=== PATIENT | male | born 1985 | race Caucasian/White ===

== ENCOUNTER 2016-10-21 08:06 | Emergency (ER) | payer BC ==
[~2016-10-21] VITALS: Ht 177.8 cm; Wt 118.8 kg
[~2016-10-21 08:06] MED LIST: AMLO5TAB4 PO; ATOR10TA64 PO; NEBI10TA PO; OXYM30SP3 EA NOSTRIL
[2016-10-21 08:08] VITALS: Ht 177.8 cm; Wt 118.8 kg
--- OUTSIDE RECORDS SUMMARY | 2016-10-21 08:09 | XMS REPORT | Referral Summary ---
Author Author [facility] Organization [facility] Address Unknown Phone Unavailable Care Team Providers Care Pot Tender Name Role Phone Andrei Moya Primary Care Physician [phone] Encounter Date(s): 06/27/16 - 06/27/[address] [facility] [address] [place] [address]- Discharge Diagnosis: Allergy Discharge Diagnosis: Obesity Discharge Diagnosis: Hypertension Discharge Disposition: 01-Home or Self Care Attending Physician: Dominick Moya MD Admitting Physician: Dominick Moya MD Vital Signs Most recent to 1 oldest [Reference Range]: Blood Pressure 146/94 mmHg [90-140/60-90 mmHg] *HI* (06/27/16 2:22 PM) Problem List Condition Effective Dates Status Health Status Informant Allergy(Confirmed) Active Asthma(Confirmed) Active Hypertension(Confirm Active ed) Hyperlipidemia(Confi Active rmed) Obesity(Confirmed) Active patient Tobacco Active patient user(Confirmed) Allergies, Adverse Reactions, Alerts Substance Reaction Severity Status sulfamethoxazole GERD, dyspnea, chest discomfort Active trimethoprim GERD, dyspnea, chest discomfort Active Medications Afrin Extra Moisturizing 2 sprays, Nasal, BID, 0 Refill(s) Start Date: 06/27/16 Status: Ordered aspirin 81 mg, Oral, Daily, 0 Refill(s) Start Date: 08/01/15 Status: Ordered Bystolic 10 mg oral tablet 10 mg 1 tabs, Oral, Daily, # 90 tabs, 3 Refill(s), Pharmacy: [facility] # [id number], 1 tabs Oral Daily Start Date: 01/02/16 Status: Ordered Lipitor 10 mg oral tablet 10 mg 1 tabs, Oral, Daily, # 90 tabs, 3 Refill(s), Pharmacy: [facility] # [id number], 1 tabs Oral Daily Start Date: 10/02/15 Status: Ordered Norvasc 5 mg oral tablet 5 mg 1 tabs, Oral, Daily, # 90 tabs, 1 Refill(s), Pharmacy: [facility] # [id number], 1 tabs Oral Daily Start Date: 01/10/16 Status: Ordered ZzzQuil Oral, as needed for insomnia, 0 Refill(s) Start Date: 12/19/15 Status: Ordered Results No data available for this section Immunizations Given and Recorded Vaccine Date Status Refusal Reason hepatitis B pediatric vaccine 01/02/98 Recorded tetanus-diphth toxoids (Td) adult/adol 01/02/98 Recorded Procedures Procedure Date Related Diagnosis Body Site Adenoidectomy Circumcision Procedure-Nasal surgery deviated septum Tonsillectomy Tonsillectomy Social History Social History Type Response Smoking Status Never smoker Assessment and Plan Extracted from: Title: Ambulatory Patient Education Author: Dominick Moya MD Date: Allergy Allergies An allergy is when your body reacts to a substance in a way that is not normal. An allergic reaction can happen after you: Eat something. Breathe in something. Touch something. WHAT KINDS OF ALLERGIES ARE THERE? You can be allergic to: Things that are only around during certain seasons, like molds and pollens. Foods. Drugs. Insects. Animal dander. WHAT ARE SYMPTOMS OF ALLERGIES? Puffiness (swelling). This may happen on the lips, face, tongue, mouth, or throat. Sneezing. Coughing. Breathing loudly (wheezing). Stuffy nose. Tingling in the mouth. A rash. Itching. Itchy, red, puffy areas of skin (hives). Watery eyes. Throwing up (vomiting). Watery poop (diarrhea). Dizziness. Feeling faint or fainting. Trouble breathing or swallowing. A tight feeling in the chest. A fast heartbeat. HOW ARE ALLERGIES DIAGNOSED? Allergies can be diagnosed with: A medical and family history. Skin tests. Blood tests. A food diary. A food diary is a record of all the foods, drinks, and symptoms you have each day. The results of an elimination diet. This diet involves making sure not to eat certain foods and then seeing what happens when you start eating them again. HOW ARE ALLERGIES TREATED? There is no cure for allergies, but allergic reactions can be treated with medicine. Severe reactions usually need to be treated at a hospital. HOW CAN REACTIONS BE PREVENTED? The best way to prevent an allergic reaction is to avoid the thing you are allergic to. Allergy shots and medicines can also help prevent reactions in some cases. This information is not intended to replace advice given to you by your health care provider. Make sure you discuss any questions you have with your health care provider. Document Released: 10/17/2013 Document Revised: 07/13/2015 Document Reviewed: [employer] Patient Education 2016 [employer] Obesity Obesity is defined as having too much total body fat and a body mass index (BMI ) of 30 or more. BMI is an estimate of body fat and is calculated from your height and weight. BMI is typically calculated by your health care provider during regular wellness visits. Obesity happens when you consume more calories than you can burn by exercising or performing daily physical tasks. Prolonged obesity can cause major illnesses or emergencies, such as: Stroke. Heart disease. Diabetes. Cancer. Arthritis. High blood pressure (hypertension). High cholesterol. Sleep apnea. Erectile dysfunction. Infertility problems. CAUSES Regularly eating unhealthy foods. Physical inactivity. Certain disorders, such as an underactive thyroid (hypothyroidism), Lindley's syndrome, and polycystic ovarian syndrome. Certain medicines, such as steroids, some depression medicines, and antipsychotics. Genetics. Lack of sleep. DIAGNOSIS A health care provider can diagnose obesity after calculating your BMI. Obesity will be diagnosed if your BMI is 30 or higher. There are other methods of measuring obesity levels. Some other methods include measuring your skinfold thickness, your waist circumference, and comparing your hip circumference to your waist circumference. TREATMENT A healthy treatment program includes some or all of the following: Long-term dietary changes. Exercise and physical activity. Behavioral and lifestyle changes. Medicine only under the supervision of your health care provider. Medicines may help, but only if they are used with diet and exercise programs. If your BMI is 40 or higher, your health care provider may recommend specialized surgery or programs to help with weight loss. An unhealthy treatment program includes: Fasting. Fad diets. Supplements and drugs. These choices do not succeed in long-term weight control. HOME CARE INSTRUCTIONS Exercise and perform physical activity as directed by your health care provider. To increase physical activity, try the following: Use stairs instead of elevators. Park farther away from store entrances. Garden, bike, or walk instead of watching television or using the computer. Eat healthy, low-calorie foods and drinks on a regular basis. Eat more fruits and vegetables. Use low-calorie cookbooks or take healthy cooking classes. Limit fast food, sweets, and processed snack foods. Eat smaller portions. Keep a daily journal of everything you eat. There are many free websites to help you with this. It may be helpful to measure your foods so you can determine if you are eating the correct portion sizes. Avoid drinking alcohol. Drink more water and drinks without calories. Take vitamins and supplements only as recommended by your health care provider. Weight-loss support groups, registered dietitians, counselors, and stress reduction education can also be very helpful. SEEK IMMEDIATE MEDICAL CARE IF: You have chest pain or tightness. You have trouble breathing or feel short of breath. You have weakness or leg numbness. You feel confused or have trouble talking. You have sudden changes in your vision. This information is not intended to replace advice given to you by your health care provider. Make sure you discuss any questions you have with your health care provider. Document Released: 07/30/2005 Document Revised: 07/13/2015 Document Reviewed: [employer] Patient Education 2016 [employer] Preventive Medicine Managing Your High Blood Pressure Blood pressure is a measurement of how forceful your blood is pressing against the norris of the arteries. Arteries are muscular tubes within the circulatory system. Blood pressure does not stay the same. Blood pressure rises when you are active, excited, or nervous; and it lowers during sleep and relaxation. If the numbers measuring your blood pressure stay above normal most of the time, you are at risk for health problems. High blood pressure (hypertension) is a long-term (chronic) condition in which blood pressure is elevated. A blood pressure reading is recorded as two numbers, such as 120 over 80 (or 120 /80). The first, higher number is called the systolic pressure. It is a measure of the pressure in your arteries as the heart beats. The second, lower number is called the diastolic pressure. It is a measure of the pressure in your arteries as the heart relaxes between beats. Keeping your blood pressure in a normal range is important to your overall health and prevention of health problems, such as heart disease and stroke. When your blood pressure is uncontrolled, your heart has to work harder than normal. High blood pressure is a very common condition in adults because blood pressure tends to rise with age. Men and women are equally likely to have hypertension but at different times in life. Before age 45, men are more likely to have hypertension. After 65 years of age, women are more likely to have it. Hypertension is especially common in Americans. This condition often has no signs or symptoms. The cause of the condition is usually not known. Your caregiver can help you come up with a plan to keep your blood pressure in a normal, healthy range. BLOOD PRESSURE STAGES Blood pressure is classified into four stages: normal, prehypertension, stage 1 , and stage 2. Your blood pressure reading will be used to determine what type of treatment, if any, is necessary. Appropriate treatment options are tied to these four stages: Normal Systolic pressure (mm Hg): below 120. Diastolic pressure (mm Hg): below 80. Prehypertension Systolic pressure (mm Hg): 120 to 139. Diastolic pressure (mm Hg): 80 to 89. Stage1 Systolic pressure (mm Hg): 140 to 159. Diastolic pressure (mm Hg): 90 to 99. Stage2 Systolic pressure (mm Hg): 160 or above. Diastolic pressure (mm Hg): 100 or above. RISKS RELATED TO HIGH BLOOD PRESSURE Managing your blood pressure is an important responsibility. Uncontrolled high blood pressure can lead to: A heart attack. A stroke. A weakened blood vessel (aneurysm). Heart failure. Kidney damage. Eye damage. Metabolic syndrome. Memory and concentration problems. HOW TO MANAGE YOUR BLOOD PRESSURE Blood pressure can be managed effectively with lifestyle changes and medicines ( if needed). Your caregiver will help you come up with a plan to bring your blood pressure within a normal range. Your plan should include the following: Education Read all information provided by your caregivers about how to control blood pressure. Educate yourself on the latest guidelines and treatment recommendations. New research is always being done to further define the risks and treatments for high blood pressure. Lifestylechanges Control your weight. Avoid smoking. Stay physically active. Reduce the amount of salt in your diet. Reduce stress. Control any chronic conditions, such as high cholesterol or diabetes. Reduce your alcohol intake. Medicines Several medicines (antihypertensive medicines) are available, if needed, to bring blood pressure within a normal range. Communication Review all the medicines you take with your caregiver because there may be side effects or interactions. Talk with your caregiver about your diet, exercise habits, and other lifestyle factors that may be contributing to high blood pressure. See your caregiver regularly. Your caregiver can help you create and adjust your plan for managing high blood pressure. RECOMMENDATIONS FOR TREATMENT AND FOLLOW-UP The following recommendations are based on current guidelines for managing high blood pressure in non adults. Use these recommendations to identify the proper follow-up period or treatment option based on your blood pressure reading. You can discuss these options with your caregiver. Systolic pressure of 120 to 139 or diastolic pressure of 80 to 89: Follow up with your caregiver as directed. Systolic pressure of 140 to 160 or diastolic pressure of 90 to 100: Follow up with your caregiver within 2 months. Systolic pressure above 160 or diastolic pressure above 100: Follow up with your caregiver within 1 month. Systolic pressure above 180 or diastolic pressure above 110: Consider antihypertensive therapy; follow up with your caregiver within 1 week. Systolic pressure above 200 or diastolic pressure above 120: Begin antihypertensive therapy; follow up with your caregiver within 1 week. This information is not intended to replace advice given to you by your health care provider. Make sure you discuss any questions you have with your health care provider. Document Released: 03/16/2013 Document Reviewed: 03/16/2013 [employer] Patient Education 2016 [employer] No follow up information was provided. Extracted from: Title: Office Visit Note Author: Dominick Moya MD Date: 06/27/16 Assessment/Plan 1.Obesity Patient isto start exercising and losing weight. Consider a sleep study. Ordered: Office Visit Level 3 Est 57403 2.Hypertension Continue with the same medications. Ordered: Office Visit Level 3 Est 42303 3.Allergy Overdosing on Afrin. He is to start cutting back on the Afrin till he gets off of it.May use Nasacort. Ordered: Office Visit Level 3 Est 05663 Follow up in 3 months and consider a thyroid sonogram and Lab.
--- OUTSIDE RECORDS SUMMARY | 2016-10-21 08:09 | XMS REPORT | Continuity of Care Document ---
Author Author [facility] Organization [facility] Address Unknown Phone Unavailable Support Name Relationship Address Phone TERESA MCLAIN MD Caregiver [address] [place] [address] [place] [address] Unavailable YVONNE JEAN MD Caregiver [address] [place] [address] [place] [phone] Unavailable ANURAG TOBIAS Next Of Kin [address] [place], [place] [id number] Insurance Providers Guarantor Luis M Tobias Address [address] [place] [address] Email DENIED/NO TO [facility] Policy Number [id number] Subscriber's Name Aria Tobias Relationship 01 Spouse Group Number [id number] Chief Complaint and Reason for Visit Chief Complaint Dizzy Reason for Visit Vertigo Problems Past Problems Medical Problem Onset Date Heat exhaustion, water deprivation Unknown Vertigo Unknown Medications Current Home Medications Medication Dose Units Route Directions Days Qty Instructions Start Date Amlodipine Besylate (Norvasc) 5 Mg Tablet 5 Mg Oral Daily Atorvastatin Calcium 10 Mg Tablet 10 Mg Oral Daily 12/16/15 Nebivolol Hcl (Bystolic) 10 Mg Tablet 10 Mg Oral Daily 12/16/15 Oxymetazoline Hcl (Nasal Sanford) 30 Ml Sanford 1 Sanford Each Nostril Four Times Daily as needed for Prn Orders 06/24/16 Social History Social History Problem Response Recorded Date/Time Onset Date Status Hx Substance Use No 06/24/2016 5:20pm Not Applicable Not Applicable Hx Alcohol Use Y OCCASIONAL 06/24/2016 5:20pm Not Applicable Not Applicable Tobacco Usage none 12/17/2015 8:47pm Not Applicable Not Applicable Query Response Start Date Stop Date Smoking Status Never smoker Hospital Discharge Instructions No hospital discharge instructions. Plan of Care Discharge Date 06/24/16 6:05pm Disposition 01 DISCHARGED HOME, SELF-CARE Condition at Discharge Stable Instructions/Education Provided DI for Vertigo Prescriptions See Medication Section Referrals TERESA MCLAIN MD Address: [address] [place] [address] [place] [address] [phone] Additional Instructions/Education Take the Meclizine as needed. May try taking only 1/2 or 1/4 tablet as needed to see if this makes you less dizzy. You may also try some Isabel maneuvers to see if this alleviate the dizziness that you are feeling. Your labs today are normal. If you are not improving at all then please follow up with your primary care provider. Care Plan and Goals Physician Care Plan Problem:Vertigo Goal: Follow up with primary care provider Instructions: Take medications and follow care plan as discussed/written Functional Status No functional status results. Allergies, Adverse Reactions, Alerts No known allergies. Immunizations Query Response on File Recorded Date/Time Influenza Vaccine Hx NONE 06/24/16 5:20pm Vital Signs Acute Vital Signs Vital Response Date/Time Temperature (Fahrenheit) 98.1 deg F (96.8 - 99.1) 06/24/2016 4:38pm Temperature (Calculated Celsius) 36.91353 degrees C (36.0 - 37.3) 06/24/2016 4:38pm Pulse Rate (adult) 72 bpm (60 - 100) 06/24/2016 6:06pm Respiratory Rate 20 breaths/min (10 - 20) 06/24/2016 6:06pm O2 Sat by Pulse Oximetry 97 % (90 - 100) 06/24/2016 6:06pm Blood Pressure 121/64 mm Hg 06/24/2016 6:06pm Height (Feet) 5 feet 06/24/2016 4:38pm Height (Inches) 10.00 inches 06/24/2016 4:38pm Weight (Kilograms) 116.800 kg 06/24/2016 4:38pm Body Mass Index (BMI) 36.0 06/24/2016 4:38pm Results Laboratory Results Test Name Result Units Flags Reference Collection Date/Time Result Date/ Time Comments White Blood Count 8.7 T/MM3 4.5-11.0 06/24/2016 5:09pm 06/24/2016 5: 16pm Red Blood Count 5.28 M/MM3 4.50-5.90 06/24/2016 5:09pm 06/24/2016 5: 16pm Hemoglobin 15.1 GM/DL 13.5-17.5 06/24/2016 5:09pm 06/24/2016 5:16pm Hematocrit 43.5 % 41-53 06/24/2016 5:09pm 06/24/2016 5:16pm Mean Corpuscular Volume 82.4 UM3 80-100 06/24/2016 5:09pm 06/24/2016 5: 16pm Mean Corpuscular Hemoglobin 28.6 UUG 26-34 06/24/2016 5:09pm 2015 5:16pm Mean Corpuscular Hemoglobin Concent 34.7 GM/DL 31-37 06/24/2016 5:09pm 06/24/2016 5:16pm RDW Standard Deviation 38.0 FL 36.9-50.2 06/24/2016 5:09pm 06/24/2016 5 :16pm Platelet Count 186 T/MM3 130-400 06/24/2016 5:09pm 06/24/2016 5:16pm Mean Platelet Volume 11.4 UM3 9.4-12.4 06/24/2016 5:09pm 06/24/2016 5: 16pm Neutrophils (%) (Auto) 56.5 % 33-66 06/24/2016 5:09pm 06/24/2016 5: 16pm Lymphocytes (%) (Auto) 34.1 % 23-45 06/24/2016 5:09pm 06/24/2016 5: 16pm Monocytes (%) (Auto) 8.2 % 0-9.0 06/24/2016 5:09pm 06/24/2016 5:16pm Eosinophils (%) (Auto) 0.5 % 0-4 06/24/2016 5:09pm 06/24/2016 5:16pm Basophils (%) (Auto) 0.6 % 0-2 06/24/2016 5:09pm 06/24/2016 5:16pm Immature Granulocyte % (Auto) 0.1 % 0.0-0.5 06/24/2016 5:09pm 2015 5:16pm Absolute Neutrophils (auto) 4.9 T/MM3 1.8-7.7 06/24/2016 5:09pm 2015 5:16pm Absolute Lymphocytes (auto) 3.0 T/MM3 1-4.8 06/24/2016 5:09pm 2015 5:16pm Absolute Monocytes (auto) 0.7 T/MM3 0-0.8 06/24/2016 5:09pm 06/24/2016 5:16pm Absolute Eosinophils (auto) 0.0 T/MM3 0-0.5 06/24/2016 5:09pm 2015 5:16pm Absolute Basophils (auto) 0.1 T/MM3 0-0.2 06/24/2016 5:09pm 06/24/2016 5:16pm Absolute Immature Granulocyte (auto 0.01 T/MM3 0.00-0.03 06/24/2016 5: 09pm 06/24/2016 5:16pm Icterus Index < 2 0-7 06/24/2016 5:09pm 06/24/2016 5:30pm Chemistry Specimen Hemolysis < 15 0-25 06/24/2016 5:09pm 06/24/2016 5 :30pm 0-25: Specimen Exhibited No Hemolysis. Turbidity < 20 0-20 06/24/2016 5:09pm 06/24/2016 5:30pm Sodium Level 141 MEQ/L 134-144 06/24/2016 5:09pm 06/24/2016 5:30pm Potassium Level 3.9 MEQ/L 3.6-5 06/24/2016 5:09pm 06/24/2016 5:30pm Chloride Level 102 MEQ/L 98-107 06/24/2016 5:09pm 06/24/2016 5:30pm Carbon Dioxide Level 27 MEQ/L 22-30 06/24/2016 5:09pm 06/24/2016 5: 30pm Anion Gap 12 MEQ/L 5-15 06/24/2016 5:09pm 06/24/2016 5:30pm Blood Urea Nitrogen 17.0 MG/DL 9-06/24/2016 5:09pm 06/24/2016 5: 30pm Creatinine 1.0 MG/DL 0.8-1.5 06/24/2016 5:09pm 06/24/2016 5:30pm BUN/Creatinine Ratio 17 RATIO 6-26 06/24/2016 5:09pm 06/24/2016 5:30pm Glomerular Filtration Rate Calc 88 06/24/2016 5:09pm 06/24/2016 5: 30pm Glucose Level 96 MG/DL 75-110 06/24/2016 5:09pm 06/24/2016 5:30pm Calculated Osmolality 273 MOSM/KG 261-280 06/24/2016 5:09pm 06/24/2016 5:30pm Calcium Level 9.4 MG/DL 8.4-10.2 06/24/2016 5:09pm 06/24/2016 5:30pm Troponin I < 0.012 ng/ml 0-0.12 06/24/2016 5:09pm 06/24/2016 5:41pm Troponin values with a difference of 55% increase from orginal troponin value represent a true biological DELTA value. (%increase Calc=Orginal Troponin value, divided by subsequent Troponin value, multiplied by 100) Procedures No known history of procedures. Encounters Encounter Location Arrival/Admit Date Discharge/Depart Date Attending Provider Departed Emergency Room [facility] 06/24/16 4:34pm 06/24/16 6: 05pm YVONNE JEAN MD Recent Diagnosis
--- OUTSIDE RECORDS SUMMARY | 2016-10-21 08:09 | XMS REPORT | Continuity of Care Document ---
Author Author [facility] Organization [facility] Address Unknown Phone Unavailable Allergies Active Description Code Type Severity Reaction Onset Reported/Identified Relationship to Patient Clinical Status Yes sulfamethoxazole NKMA N/A GERD, dyspnea, chest discomfor 11/02/2013 Yes trimethoprim NKMA N/A GERD, dyspnea, chest discomfor 11/02/2013 Medications Problems Date Dx Coded Attending Type Code Diagnosis Diagnosed By 04/18/2013 Stephane Florence MD Final 608.9 MALE GENITAL DISORD NOS Procedures Results Encounters ACCT No. Visit Date/Time Discharge Status Pt. Type Provider Facility Loc./Unit Complaint [id number] 04/18/2013 16:07:00 2012 23:59:59 [facility] Outpatient Stephane Florence MD [facility]
--- NOTE | 2016-10-21 08:18 | NUR ---
DR DEVINE IN
--- NOTE | 2016-10-21 08:22 | ERPDOC ---
Departure Disposition Decision Date: Oct 21, 2016 Disposition Decision Time: 09:25 Disposition: 01 DISCHARGED HOME, SELF-CARE Impression Impression Impression: Primary Impression: Insomnia Insomnia type: unspecified Qualified Codes: G47.00 - Insomnia, unspecified Additional Impression: Atypical chest pain Severity: Moderate Condition: Stable Seen By: Physician only Referrals: TERESA MCLAIN MD (Family) Follow-up for evaluation of possible sleep study Patient Instructions: Insomnia (ED) Problems/Meds/Labs Reviewed?: Yes Medications reviewed and manag: Yes Additional Instructions: Recommend Benadryl 25 mg times one may repeat in 45 minutes times one but do not take more than 2 pills in the night Departure Forms: Return to Work/School Permit Return to Work/School Date: Oct 23, 2016 Follow up care ordered?: Yes Mental Status: Alert, Oriented HPI - General Medical General Stated Complaint: CHEST TIGHTNESS, RACING HEART, HEMISPHERIC WEAKNES Time Seen by Provider: 08:18 Source: patient Exam Limitations: no limitations HPI - General Medical Initial Comments Patient is a 30-year-old male presents emergency room for evaluation of chest tightness and racing heart and what he describes as "hemispheric weakness". Patient has a history of anxiety, also has a history of asthma and prior episodes of dizziness. Patient has been evaluated in the past by his primary medical physician and started on meclizine which patient does not take because it makes him too sleepy. Patient was seen here 06/2016 for similar symptoms all laboratories and x-rays EKG were all noncontributory patient was referred back to his primary medical physician. Patient has not done that. Patient today presents the ER for 2-3 day history of shortness of air, gasping for breath at night, now states that he is having left-sided "heaviness". Patient states he symptoms have been going on for 2-3 days, difficulty sleeping, was able to review some of Dr. Mclain's notes, he was going to schedule the patient for a sleep study however this has not been done. Patient decided today to present to the ER for evaluation. Patient also states he has ruptured since of palpitations and racing heart, current heart rate is normal sinus rhythm at 82 blood pressure 138/90 satting 96% Occurred At: home Onset: Gradual Duration: other (2 days) Associated Symptoms: shortness of breath Allergies: Coded Allergies: No Known Allergies (Unverified , 10/21/16) Past History Past Medical History Metabolic: hypertension Respiratory: asthma Psychological: anxiety Surgical History General: other, tonsils Social History Substance Use Type: does not use Alcohol Intake: none Review of Systems Constitutional Constitutional: appetite decrease, weakness, DENIES: chills, dizziness, fever Eyes Vision: DENIES: blurring, double vision, loss of visual bruno ENMT Sinuses: DENIES: congestion, rhinorrhea Mouth/Throat: DENIES: scratchy throat, sore throat Cardiovascular Cardiac: chest pain ("tightness"), dyspnea on exertion Rhythm/Rate: irregular beat, palpitations, tachycardia Pulmonary Respiratory: DENIES: cough, dyspnea, sputum, tachypnea GI Upper Abdomen: DENIES: nausea, pain, vomiting Lower Abdomen: DENIES: constipation, diarrhea, pain General: DENIES: frequency, urgency Musculoskeletal General: DENIES: cramps, pain, weakness Integumentary Skin: DENIES: color change, itching, rash Neurological General: weakness (heaviness to the left side of his body), DENIES: headache, numbness Endocrine Endocrine: DENIES: heat/cold intolerance Hematologic/Lymphatic Hematologic/Lymphatic: DENIES: anemia Physical Exam General General Nourishment: well nourished, well developed General Body Habitus: well groomed Vitals and Pain First Documented Vital Signs Date Time Temp Pulse Resp B/P Pulse Ox O2 Delivery O2 Flow Rate FiO2 10/21/16 08:08 98.8 92 21 138/90 98 Room Air Weight: Kilograms: Height (feet): 5 Height (inches): 10.00 Triage Pain Scale: RN VS reviewed by Provider: Yes Eyes (brief) Eyes Brief: found: EOMI, PERRL ENMT (brief) ENMT Brief: FOUND: mucosa moist, normal dentition, NOT FOUND: nasal erythema, pharnyx erythema, tonsillar deviation Neck (brief) Neck: NOT FOUND: adenopathy, spasm, tenderness Respiratory (brief) Respiratory: FOUND: clear all bruno, equal bilaterally, NOT FOUND: rales, wheezes Cardiovascular (brief) Cardiac: FOUND: regular rate, regular rhythm, NOT FOUND: pedal edema Capillary Refill: <2 sec Abdomen (brief) Abdominal Brief: FOUND: bowel normo active x4, soft, NOT FOUND: distended, tender Lymphatic (brief) Lymphatic Brief: NOT FOUND: adenopathy Musculoskeletal (brief) Musculoskeletal Brief: NOT FOUND: spasm, tenderness Integumentary (brief) Integumentary Brief: FOUND: dry, pink, warm, NOT FOUND: rash Neurologic (brief) Neurological Brief: FOUND: CN w/o gross def to obs, motor-no gross deficits, sensory-no gross deficits Psychiatric (brief) Psychiatric Brief: FOUND: alert, oriented Differential Diagnoses Considering: Acute [place], Depression, Hypo/Hyperglycemia, Hypo/Hyperkalemia, Hypo/ Hypernatremia, Intracranial Hemorrhage, Medication Effect, Metabolic, Psychosis , Pulmonary Embolus, Other Progress Results/Orders Orders Procedure Category Date Status Time EKG EKG 10/21/16 Taken 08:10 Cbc W/Auto LAB 10/21/16 Complete Diff-Reflex Manual 08:22 Bmp - Basic Metabolic LAB 10/21/16 Complete Panel 08:22 Troponin I W LAB 10/21/16 Complete Hemolysis Index 08:22 D-Dimer LAB 10/21/16 Complete 08:22 Magnesium LAB 10/21/16 Complete 08:22 Chest 1 View RAD 10/21/16 Resulted 08:22 Iv Lock (Ed Only) EDM 10/21/16 Transmitted 08:22 Aspirin (Asa) PHA 10/21/16 Complete 08:30 Ct Head W/O Contrast CT 10/21/16 Resulted 08:22 Lab Results Laboratory Tests Test 10/21/16 08:27 White Blood Count 7.9T/MM3 Red Blood Count 5.60M/MM3 Hemoglobin 16.3GM/DL Hematocrit 45.7% Mean Corpuscular Volume 81.6UM3 Mean Corpuscular Hemoglobin 29.1UUG Mean Corpuscular Hemoglobin Concent 35.7GM/DL RDW Standard Deviation 37.7FL Platelet Count 195T/MM3 Mean Platelet Volume 11.1UM3 Immature Granulocyte % (Auto) 0.3% Neutrophils (%) (Auto) 58.9% Lymphocytes (%) (Auto) 30.7% Monocytes (%) (Auto) 9.1% Eosinophils (%) (Auto) 0.6% Basophils (%) (Auto) 0.4% Absolute Immature Granulocyte (auto 0.02T/MM3 Absolute Neutrophils (auto) 4.7T/MM3 Absolute Lymphocytes (auto) 2.4T/MM3 Absolute Monocytes (auto) 0.7T/MM3 Absolute Eosinophils (auto) 0.1T/MM3 Absolute Basophils (auto) 0.0T/MM3 D-Dimer < 150NG/ML Turbidity < 20 Sodium Level 146MEQ/L Potassium Level 3.9MEQ/L Chloride Level 107MEQ/L Carbon Dioxide Level 25MEQ/L Anion Gap 14MEQ/L Blood Urea Nitrogen 12.0MG/DL Creatinine 0.9MG/DL Glomerular Filtration Rate Calc 99 BUN/Creatinine Ratio 13RATIO Glucose Level 115MG/DL Calculated Osmolality 282MOSM/KG Calcium Level 9.2MG/DL Magnesium Level 1.9MG/DL Icterus Index < 2 Troponin I < 0.012ng/ml Chemistry Specimen Hemolysis < 15 Medications Current ED Medications Aspirin (ASA) 324 mg O ONCE PO Last administered on 10/21/16t 09:03; Start at 08:30; Stop 10/21/16 at 08:31; Status DC Progress Progress Patient's laboratories are all noncontributory CT scan and chest x-ray are no acute findings EKG normal sinus rhythm without ectopy or infarction. Discussed signs and symptoms with patient will recommend Benadryl attempt for sleep, follow-up with primary medical physician for possible sleep apnea study EKG EKG : Rate: 60-100 Rhythm: sinus [place]: normal QRS: normal Intervals: normal ST/T: non-specific changes Interpreted by: signing physician Xray Xray : Xray: CXR Portable Interpretation: Normal, Reviewed Written Report CT CT : CT: Head no contrast Interpretation: Normal, Reviewed Written Report TAYO DEVINE MD Oct 21, 2016 08:22
--- OUTSIDE RECORDS SUMMARY | 2016-10-21 08:26 | XMS REPORT | Continuity of Care Document ---
Author Author [facility] Organization [facility] Address Unknown Phone Unavailable Allergies Active Description [...] Status Pt. Type Provider Facility Loc./Unit Complaint [id number] 04/18/2013 16:07:00 2012 23:59:59 [facility] Outpatient Stephane Florence MD [facility]
[2016-10-21] MEDS ORDERED: ASPIRIN 81 MG CHEWABLE TABLET PO ONE (08:30)
[2016-10-21 08:34] LABS: BASOPHILS % (AUTO) 0.4 % (0-2); EOSINOPHILS # (AUTO) 0.1 T/MM3 (0-0.5); EOSINOPHILS % (AUTO) 0.6 % (0-4); HCT - HEMATOCRIT 45.7 % (41-53); HGB - HEMOGLOBIN 16.3 GM/DL (13.5-17.5); IMMATURE GRANULOCYTE # (AUTO) 0.02 T/MM3 (0.00-0.03); IMMATURE GRANULOCYTE % (AUTO) 0.3 % (0.0-0.5); LYMPHOCYTES # (AUTO) 2.4 T/MM3 (1-4.8); LYMPHOCYTES % (AUTO) 30.7 % (23-45); MEAN CORPUSCULAR HGB 29.1 UUG (26-34); MEAN CORPUSCULAR HGB CONC(MCHC 35.7 GM/DL (31-37); MEAN CORPUSCULAR VOLUME 81.6 UM3 (80-100); MEAN PLATELET VOLUME 11.1 UM3 (9.4-12.4); MONOCYTES # (AUTO) 0.7 T/MM3 (0-0.8); MONOCYTES % (AUTO) 9.1 % (0-9.0); NEUTROPHILS #(AUTO)-ABSOLUTE 4.7 T/MM3 (1.8-7.7); NEUTROPHILS % (AUTO) 58.9 % (33-66); WBC - WHITE BLOOD COUNT 7.9 T/MM3 (4.5-11.0)
[2016-10-21 08:45] LABS: ANION GAP 14 MEQ/L (5-15); BUN/CREATININE RATIO 13 RATIO (6-26); CALCIUM 9.2 MG/DL (8.4-10.2); CHLORIDE 107 MEQ/L (98-107); CO2 - CARBON DIOXIDE 25 MEQ/L (22-30); CREATININE 0.9 MG/DL (0.8-1.5); GLOMERULAR FILTRATION RATE 99; GLUCOSE 115 MG/DL (75-110); MAGNESIUM 1.9 MG/DL (1.6-2.3); POTASSIUM 3.9 MEQ/L (3.6-5); SODIUM 146 MEQ/L (134-144)
--- NOTE | 2016-10-21 08:45 | DI ---
Indication: ITS.REASON: shortness of air, gasping for breath PROCEDURE: CHEST 1 VIEW: Encounter: Initial Comparison: None FINDINGS: The lungs are clear. There is no abnormal airspace opacity, pleural effusion or pneumothorax identified. The heart size, pulmonary vasculature and mediastinum are within normal limits. No significant skeletal abnormality is seen. IMPRESSION: No acute cardiopulmonary abnormality. .
--- NOTE | 2016-10-21 08:50 | NUR ---
TO CT PER CART
--- NOTE | 2016-10-21 08:55 | NUR ---
RETURNED FROM CT
--- NOTE | 2016-10-21 09:04 | DI ---
Indication: ITS.REASON: heaviness to left side of body rule out stroke PROCEDURE: CT HEAD W/O CONTRAST: Encounter: Initial Comparison: None Technique: Axial CT images through the head were performed without contrast. Iterative Reconstruction dose reducing technique was utilized. FINDINGS: The ventricles are of normal size, shape, and contour for the patient's age. The brainstem, cerebellum, and cerebral hemispheres have a normal morphology and CT attenuation. There is no evidence of midline displacement. No hemorrhage, signs of acute territorial stroke, mass effect, mass lesions, or edema is evident. The visualized portions of the skull base, midface, and calvarium demonstrate no abnormality. The paranasal sinuses are well aerated and free of significant disease. The tympanic and mastoid cavities appear normal. IMPRESSION: No acute intracranial abnormality or hemorrhage. Normal head CT. .
--- NOTE | 2016-10-21 09:10 | NUR ---
STATUS VS & MONITOR IS STABLE. PAIN ABOUT THE SAME
--- NOTE | 2016-10-21 09:20 | NUR ---
DR DEVINE IN
[2016-10-21 09:42] VITALS: BP 128/75; PULSE 74; RESP 14; TEMP 98.4; O2SAT 96
--- NOTE | 2016-10-21 09:42 | NUR ---
DISMISSAL INSTRUCTIONS REVIEWED. DISCHARGED AMB
== END 2016-10-21 09:42 | disposition home or self-care (01) ==
LOC: ED 08:06
DX: R07.89 Other chest pain (principal); G47.00 Insomnia, unspecified; I10 Essential (primary) hypertension
CPT/HCPCS: 36000; 80048; 83735; 84484; 85025; 85379; 93005